=== PATIENT | male | born 1985 | race Caucasian/White ===

== ENCOUNTER 2017-06-24 07:30 | Outpatient (RCR) | payer OTHER, BC | END 2017-10-14 12:31 | disposition home or self-care (01) | LOC: WSPT | DX: Z98.890 Other specified postprocedural states (principal) | CPT/HCPCS: G0283-GP ==

== ENCOUNTER 2017-10-27 07:00 | Outpatient (RCR) | payer OTHER, BC | END 2017-10-27 16:50 | disposition home or self-care (01) | LOC: WSPT 07:00 | DX: Z47.89 Encounter for other orthopedic aftercare (principal); M23.300 Other meniscus derangements, unspecified lateral meniscus, right knee; M94.8X6 Other specified disorders of cartilage, lower leg; Z94.89 Other transplanted organ and tissue status ==